=== PATIENT | male | born 1955 | race Caucasian/White ===

== ENCOUNTER 2022-03-08 08:48 | Emergency (ER) | payer OTHER ==
[~2022-03-08] VITALS: Ht 193 cm; Wt 83.0 kg
[2022-03-08] MEDS ORDERED: SODIUM CHLORIDE 0.9% 500 ML IV ONE (09:30)
[2022-03-08] MEDS ORDERED: methylPREDNISolone SOD SUCC 125 MG/2 ML VL IV ONE (09:30)
[2022-03-08 09:42] VITALS: BP 127/75
[2022-03-08] MEDS ORDERED: METH4PAK PO (09:46)
[2022-03-08] MEDS ORDERED: TRIA0.02 TOP (09:46)
== END 2022-03-08 10:10 | disposition home or self-care (01) ==
LOC: EDBD 08:48 → ER 08:48
DX: R21 Rash and other nonspecific skin eruption (principal); T63.441A Toxic effect of venom of bees, accidental (unintentional), initial encounter; E11.9 Type 2 diabetes mellitus without complications; Z79.899 Other long term (current) drug therapy; Y92.89 Other specified places as the place of occurrence of the external cause
CPT/HCPCS: 93005; 96361; 96374; 99284; J2930; J7040